=== PATIENT | male | born 1945 ===

== ENCOUNTER 2023-10-02 09:50 | Emergency (ER) | payer MEDICARE, OTHER ==
[2023-10-02] MEDS: Sodium Chloride 0.9% 10 ML Syringe FLUSH PRN (10:18)
[2023-10-02] MEDS: Lactated Ringers 500 ML IV ONE (10:18)
[2023-10-02 10:48] LABS: BASOPHILS PERCENT AUTO 0.1 % (0.0-1.0); EOSINOPHILS PERCENT AUTO 0.4 % (0.0-6.0); HEMATOCRIT 38.4 % (42.0-52.0); IMMATURE GRAN ABSOLUTE AUTO 0.06 K/mm3 (0.00-0.05); IMMATURE GRAN PERCENT AUTO 0.7 % (0.0-0.4); LYMPHOCYTES ABSOLUTE AUTO 0.1 K/mm3 (1.0-4.8); LYMPHOCYTES PERCENT AUTO 1.6 % (24.0-44.0); MEAN CORPUSCULAR HEMOGLOBIN 30.6 pg (28.0-32.0); MEAN CORPUSCULAR HGB CONC 34.6 g/dl (32.0-36.0); MEAN PLATELET VOLUME 12.7 fl (9.4-12.4); MONOCYTES ABSOLUTE AUTO 0.1 K/mm3 (0.0-0.8); MONOCYTES PERCENT AUTO 0.9 % (0.0-8.0); NEUTROPHILS ABSOLUTE AUTO 8.2 K/mm3 (1.8-7.7); NRBC ABSOLUTE 0.04 (0.00-0.02); NRBC PERCENT 0.5 % (0.0-0.2); RED BLOOD CELL COUNT 4.35 M/mm3 (4.52-5.90); WHITE BLOOD CELL COUNT,WBC 8.56 K/mm3 (3.9-11.3)
[2023-10-02] MEDS: Lactated Ringers 1,000 ML IV ONE (10:54)
[2023-10-02 10:59] LABS: HEMOGLOBIN 13.3 gm/dl (14.0-18.0); MEAN CORPUSCULAR VOLUME 88.3 fl (83.0-99.0); PLATELET COUNT,PLT 49 K/mm3 (150-400)
[2023-10-02 11:00] LABS: NEUTROPHILS PERCENT AUTO 96.3 % (41.0-71.0)
[2023-10-02 11:08] LABS: INR 1.71; PROTHROMBIN TIME 17.5 SECONDS (9.7-12.0)
[2023-10-02 11:10] LABS: PTT,PARTIAL THROMBOPLSTIN TIME 36.5 SECONDS (21.7-31.4)
[2023-10-02 11:30] LABS: A/G RATIO 0.7 (1-2); ALBUMIN 2.4 g/dl (3.4-5.0); ANION GAP 15.3 (5-15); BILIRUBIN TOTAL 1.7 mg/dL (0.2-1.0); BUN/CREATININE RATIO 24.4 (14-18); CALCIUM 8.3 mg/dL (8.5-10.1); CREATININE 3.6 mg/dL (0.7-1.3); EST CRCL DRUG DOSING (CG) 18.86 mL/min; MAGNESIUM 2.5 mg/dL (1.8-2.4); POTASSIUM,K 3.3 mEq/L (3.5-5.1); PROTEIN TOTAL,TP 5.7 g/dl (6.4-8.2)
[2023-10-02] MEDS: Piperacillin/Tazobactam 4.5 GM in Sodium Chloride 0.9% 100 ML IV ONE (11:35)
[2023-10-02 11:39] LABS: LACTIC ACID 2.2 mmol/L (0.4-2.0)
[2023-10-02 11:41] LABS: SLIDE REVIEW ABNORMAL SMEAR
[2023-10-02] MEDS ORDERED: EPINEPHrine 1:10,000 1 MG/10 ML Syringe ONE (12:00)
[2023-10-02 12:01] LABS: CORONAVIRUS COVID-19 NAA NEGATIVE (NEGATIVE); INFLUENZA A NAA NEGATIVE (NEGATIVE); RESPIRATORY SYNCYTIAL VIR NAA NEGATIVE (NEGATIVE)
[2023-10-02 12:19] LABS: BASE EXCESS ARTERIAL -3.5 (-2-2.0); BICARBONATE,ARTERIAL 21.2 meq/L (22.0-26.0); PCO2 ARTERIAL 39.3 mmHg (35.0-45.0)
[2023-10-02] MEDS ORDERED: DOBUTamine/Dextrose 5%-Water 250 MG/250 ML BAG IV SCH (13:15)
[2023-10-02] MEDS: VANCOmycin 1.75 GM/350 ML 1.75 GM in Premix Bag 1 BAG IV ONE (14:06)
== END 2023-10-02 14:55 ==
LOC: JD.ED 09:50
DX: R53.1 Weakness (principal); N17.9 Acute kidney failure, unspecified; I50.9 Heart failure, unspecified; J18.9 Pneumonia, unspecified organism; R57.0 Cardiogenic shock; Z87.891 Personal history of nicotine dependence
CPT/HCPCS: 0241U; 36415; 36600; 71045; 80053; 82550; 82803; 83605; 83690; 83735; 83880; 84484; 85025; 85610; 85730; 87040; 87077; 87154; 87186; 93005; 94660; 96365; 96366; 96368; 99285; J0171; J2543; J3372; J3490; J7120; 93010; 99291; 99292